=== PATIENT | female | born 1955 | race Caucasian/White ===

== ENCOUNTER 2017-05-11 05:20 | Inpatient (IN) | payer BC, OTHER ==
[2017-05-04 12:27] VITALS: BP 113/80
[~2017-05-11] VITALS: Ht 167.6 cm; Wt 74.0 kg
[~2017-05-11 05:20] MED LIST: ALBU8.5H3 INH; ESCI10TA10 PO; GABA100C PO; LEVO25TA2 PO; LISI-170 PO; TOPI100T24 PO
[2017-05-11] MEDS ORDERED: LACTATED RINGERS 1,000 ML IV SCH (06:18)
[2017-05-11] MEDS ORDERED: LIDOCAINE 1%, 2ML SQ PRN (06:30)
[2017-05-11] MEDS ORDERED: THROMBIN 20,000 UNIT VIAL TP ONE (06:44)
[2017-05-11] MEDS ORDERED: BUPIVACAINE/PF 0.5% ONE (06:44)
[2017-05-11] MEDS ORDERED: BACITRACIN 50,000 UNIT ONE (06:44)
[2017-05-11] MEDS ORDERED: EPINEPHRINE 1 MG/ML, 1ML ONE (06:44)
[2017-05-11] MEDS ORDERED: PNEUMOCOCCAL 23 VACCINE IM-VACC ONE (07:00)
[2017-05-11] MEDS ORDERED: FENTANYL PF 250 MCG/5ML ONE (07:12)
[2017-05-11] MEDS ORDERED: KETAMINE 10 MG/ML, 20ML ONE (07:12)
[2017-05-11] MEDS ORDERED: MIDAZOLAM 1 MG/ML, 2ML ONE ×2 (07:13→10:34)
[2017-05-11] MEDS ORDERED: REMIFENTANIL 2 MG ONE (07:13)
[2017-05-11] MEDS ORDERED: ONDANSETRON 2MG/ML, 2ML ONE (07:34)
[2017-05-11] MEDS ORDERED: DEXAMETHASONE 4 MG/ML, 1ML ONE (07:34)
[2017-05-11] MEDS ORDERED: PROPOFOL 10 MG/ML, 50ML ONE (07:34)
[2017-05-11] MEDS ORDERED: CEFAZOLIN 1,000 MG ONE (07:34)
[2017-05-11] MEDS ORDERED: PROPOFOL 10 MG/ML, 20ML ONE (07:34)
[2017-05-11] MEDS ORDERED: ROCURONIUM 10 MG/ML ONE (07:34)
[2017-05-11] MEDS ORDERED: KETOROLAC 30 MG/1 ML ONE (07:34)
[2017-05-11] MEDS ORDERED: ACETAMINOPHEN 325 MG TABLET PO PRN (09:00)
[2017-05-11] MEDS ORDERED: ALBUTEROL SULFATE 2.5 MG/3 ML NPPB PRN (09:00)
[2017-05-11] MEDS ORDERED: PROMETHAZINE 25 MG/ML, 1ML IV PRN (09:00)
[2017-05-11] MEDS ORDERED: MIDAZOLAM 1 MG/ML, 2ML IV PRN (09:00)
[2017-05-11] MEDS ORDERED: HYDROmorphone 1 MG/ML, 1ML ONE ×2 (10:05→11:29)
[2017-05-11] MEDS ORDERED: FENTANYL PF 100 MCG/2ML ONE (10:05)
[2017-05-11] MEDS: HYDROmorphone 1 MG/ML, 1ML IV PRN ×3 (10:07→11:31)
[2017-05-11] MEDS: FENTANYL PF 100 MCG/2ML IV PRN ×2 (10:08→11:15)
[2017-05-11] MEDS ORDERED: hydrALAzine 20 MG/ML, 1ML ONE (10:37)
[2017-05-11] MEDS ORDERED: hydrALAzine 20 MG/ML, 1ML IV PRN (11:00)
[2017-05-11 12:00] VITALS: BP 131/82
[2017-05-11] MEDS ORDERED: DIPHENHYDRAMINE 50 MG/ML, 1ML IVPush PRN (13:00)
[2017-05-11] MEDS ORDERED: PROMETHAZINE 25 MG/ML, 1ML IM PRN (13:00)
[2017-05-11] MEDS ORDERED: MAGNESIUM HYDROXIDE 8%, 30ML UDC PO PRN (13:00)
[2017-05-11] MEDS ORDERED: DIPHENHYDRAMINE 50 MG CAPSULE PO PRN (13:00)
[2017-05-11] MEDS ORDERED: ALBUTEROL HFA INH PRN (13:00)
[2017-05-11] MEDS ORDERED: DIPHENHYDRAMINE 50 MG/ML, 1ML IM PRN (13:00)
[2017-05-11] MEDS ORDERED: ONDANSETRON 2MG/ML, 2ML IV PRN (13:00)
[2017-05-11] MEDS ORDERED: BISACODYL 10 MG SUPP PR PRN (13:00)
[2017-05-11] MEDS ORDERED: morphine SULFATE 10 MG/ML, 1ML IV PRN (13:00)
[2017-05-11] MEDS ORDERED: METHOCARBAMOL 1,000 MG in DEXTROSE 5% 100 ML IV ONE (13:00)
[2017-05-11] MEDS: DEXAMETHASONE 4 MG/ML, 1ML IV SCH ×2 (13:14→19:57)
[2017-05-11] MEDS: NS + 20MEQ KCL 1,000 ML IV SCH (13:14)
[2017-05-11] MEDS ORDERED: GABAPENTIN 100 MG CAPSULE PO PRN ×2 (13:30→19:30)
[2017-05-11 14:15] VITALS: BP 126/72
[2017-05-11] MEDS ORDERED: CEFAZOLIN PMX 2GM/100ML 100 ML IVPB SCH (15:30)
[2017-05-11] MEDS: CEFAZOLIN PMX 2GM/50ML 50 ML IVPB SCH ×2 (15:57→23:45)
[2017-05-11] MEDS: ACETAMINOPHEN 500 MG TABLET PO PRN ×2 (15:57→22:09)
[2017-05-11 17:46] VITALS: BP 93/63
[2017-05-11 20:19] VITALS: BP 126/77
[2017-05-11] MEDS ORDERED: ZOLPIDEM 5MG TABLET PO PRN (21:00)
[2017-05-11] MEDS: METHOCARBAMOL 750 MG in DEXTROSE 5% 100 ML IV SCH (21:09)
[2017-05-12 00:06] VITALS: BP 107/64
[2017-05-12] MEDS: NS + 20MEQ KCL 1,000 ML IV SCH (01:03)
[2017-05-12] MEDS: DEXAMETHASONE 4 MG/ML, 1ML IV SCH ×2 (02:02→07:49)
[2017-05-12 04:39] VITALS: BP 114/70
[2017-05-12] MEDS: ACETAMINOPHEN 500 MG TABLET PO PRN ×2 (04:46→10:43)
[2017-05-12] MEDS: METHOCARBAMOL 750 MG in DEXTROSE 5% 100 ML IV SCH (04:46)
[2017-05-12] MEDS ORDERED: LEVOTHYROXINE 25 MCG TABLET PO SCH (06:00)
[2017-05-12 07:19] VITALS: BP 110/70
[2017-05-12] MEDS: CEFAZOLIN PMX 2GM/50ML 50 ML IVPB SCH (07:49)
[2017-05-12] MEDS ORDERED: LISINOPRIL 20 MG TABLET PO SCH (09:00)
[2017-05-12] MEDS ORDERED: CITALOPRAM 20 MG TABLET PO SCH (09:00)
[2017-05-12] MEDS ORDERED: SENNA/DOCUSATE TABLET PO SCH (09:00)
[2017-05-12] MEDS ORDERED: TOPIRAMATE 100 MG TABLET PO SCH (09:00)
[2017-05-12] MEDS ORDERED: DOCU-30 PO (10:58)
[2017-05-12] MEDS ORDERED: METH4TAB2 PO (10:58)
[2017-05-12] MEDS ORDERED: METH750T87 PO (10:59)
[2017-05-12] MEDS ORDERED: TRAM50TA2 PO (11:00)
[2017-05-13] MEDS ORDERED: METHOCARBAMOL 750 MG TABLET PO SCH (21:00)
== END 2017-05-12 11:25 | disposition home or self-care (01) | DRG 518 ==
LOC: OUT 05:20 → EDSTATUS 07:30 → 4NOR 12:07 → OUT 22:31 → 4NOR 22:34 → DCLOUNGE 05-12 10:56
PROVIDERS: ADMIT Neurological Surgery; ATTEND Neurological Surgery
PROC: 01N10ZZ Release Cervical Nerve, Open Approach (ICD-10-PCS; 2017-05-11)
PROC: 4A11X4G Monitoring of Peripheral Nervous Electrical Activity, Intraoperative, External Approach (ICD-10-PCS; 2017-05-11)
PROC: 0RR30JZ Replacement of Cervical Vertebral Disc with Synthetic Substitute, Open Approach (ICD-10-PCS; principal; 2017-05-11 07:30)
DX: M48.02 Spinal stenosis, cervical region (principal); I10 Essential (primary) hypertension; F32.9 Major depressive disorder, single episode, unspecified; F41.9 Anxiety disorder, unspecified; J45.909 Unspecified asthma, uncomplicated; M54.12 Radiculopathy, cervical region; Z88.5 Allergy status to narcotic agent; Z88.0 Allergy status to penicillin; Z88.2 Allergy status to sulfonamides
CPT/HCPCS: 72040; 90732; C1776; J0171; J0690; J1100; J1170; J1885; J2250; J2405; J2704; J3010; J3480; J3490; C1778; J2800; J7120